=== PATIENT | female | born 1955 | race Caucasian/White ===

== ENCOUNTER → 2016-12-05 | Outpatient (CLI) | payer OTHER | END | disposition disaster alternative care site (69) | LOC: GBCOE 07:23 | DX: Z12.31 Encounter for screening mammogram for malignant neoplasm of breast (principal) | CPT/HCPCS: G0202 ==

== ENCOUNTER → 2016-12-07 | Outpatient (CLI) | payer OTHER | END | disposition disaster alternative care site (69) | LOC: GRAD 07:46 | DX: R93.8 Abnormal findings on diagnostic imaging of other specified body structures (principal); R05 Cough | CPT/HCPCS: Q9967 ==